=== PATIENT | female | born 1995 | race Two or more races ===

== ENCOUNTER 2017-11-08 18:46 | Emergency (ER) | payer MEDICAID ==
[~2017-11-08] VITALS: Ht 154.9 cm; Wt 57.6 kg
[2017-11-08 18:58] VITALS: BP 116/70
[2017-11-08] MEDS ORDERED: TYLENOL EXTRA500 MG ORAL (19:07)
--- NOTE | 2017-11-08 19:07 | Emergency Room Report ---
History of Present Illness General Chief Complaint: Upper Extremity Injury Source: Patient (Nicholas Franco) Present Illness HPI 22-year-old female patient presents ER complaining of right wrist pain since . Patient reports that she was moving boxes when her pinky finger got stuck between a box in the wall and got pulled back. Patient reports that she began to experience wrist pain at that time. Patient reports pain is increased during that time. Patient reports she is right-handed. Patient reports no loss of function. Patient reports pain with movement.. Patient denies open wound, bruising, swelling. denies fever, chest pain, shortness of breath. (Nicholas Franco) Allergies: Coded Allergies: No Known Allergies (Unverified , 11/08/17) Patient History Past Medical History: see triage record Last Menstrual Period: 11/02 Now: No Reviewed Nursing Documentation: PMH: Agreed; PSxH: Agreed (Nicholas Franco) Nursing Documentation-PMH Past Medical History: No Stated History (Nicholas Franco) Review of Systems All Other Systems: negative except mentioned in HPI (Nicholas Franco) Physical Exam Vital Signs Date Time Temp Pulse Resp B/P (MAP) Pulse Ox O2 Delivery O2 Flow Rate FiO2 11/08/17 18:48 98.6 85 18 120/71 100 Room Air 98.6 Sp02 EP Interpretation: reviewed, normal General Appearance: well appearing, no apparent distress, alert, GCS 15, non- toxic Head: normocephalic, atraumatic Eyes: bilateral eye normal inspection, bilateral eye PERRL Neck: full range of motion Respiratory: lungs clear, normal breath sounds, no rhonchi, no respiratory distress, no accessory muscle use, no wheezing, speaking full sentences Cardiovascular #1: regular rate, rhythm, no edema Cardiovascular #2: 2+ radial (R), 2+ radial (L) Musculoskeletal: back normal, digits/nails normal, gait/station normal, normal range of motion, non-tender, other - NVI, cap refill <2sec in all digits, no snuffbox tenderness, able to make fist Neurologic: alert, oriented x3, responsive, motor strength/tone normal, sensory intact Psychiatric: mood/affect normal Skin: no rash Lymphatic: no adenopathy (Nicholas Franco) Medical Decision Making PA Attestation Dr. Miller is my supervising Physician whom patient management has been discussed with. (Nicholas Franco) Diagnostic Impression: Primary Impression: Wrist pain ER Course Pt. presents to the ED c/o right wrist pain. Ddx considered but are not limited to fracture, sprain, strain, contusion, dislocation. Vital signs: are WNL, pt. is afebrile Ordered X-ray and pain medication. ER COURSE Provided with pain medication. PE benign, full ROM, no snuffbox tenderness, no deformity, NVI. Pain with reported with radial and ulnar deviation. An X-ray of the right wrist was ordered, results show no acute fracture, per the preliminary reading. Splint was applied to the right wrist was checked afterwards by me showing good alignment and support with distal neurovascular functioning intact. Patient instructed on RICE method: rest, ice, compression, elevation. Patient instructed to WBAT Followup with primary care provider for further treatment and referral. Discuss referral to ortho/pain management/PT as needed. Discuss further imaging with MRI/CT as needed. DISCHARGE: -Rx provided for Tylenol for pain symptoms. At this time pt. is stable for d/c to home. Patient is resting comfortably, in no acute distress, nontoxic appearing, talking without difficulty. Will provide printed patient care instructions, and any necessary prescriptions. Patient instructed to follow with primary care provider in 3 - 5 days and to request further orthopedic follow-up. Care plan and follow up instructions have been discussed with the patient prior to discharge. Take medications as directed. Patient questions asked and answered. Patient reports understanding and agreement to treatment plan. ER precautions given, patient instructed to return to ER immediately for any new or worsening of symptoms. - Please note that this Emergency Department Report was dictated using test companymathematics department chair technology software, occasionally this can lead to erroneous entry secondary to interpretation by the dictation equipment. (Nicholas Franco) Other X-Ray Diagnostic Results Other X-Ray Diagnostic Results : X-Ray ordered: right wrist # of Views/Limited Vs Complete: 3 View Indication: Pain EP Interpretation: Yes PA Xray: Interpretation reviewed, by supervising MD, and agrees with findings. Interpretation: no dislocation, no soft tissue swelling, no fractures Impression: No acute disease PA Scribe Text Tashi Franco PA-C (Nicholas Franco) Other X-Ray Diagnostic Results : Electronically Signed by: Stephani documentation reviewed by me and is accurate, Arsenio Millre MD. (Arsenio Miller M.D.) Last Vital Signs Date Time Temp Pulse Resp B/P (MAP) Pulse Ox O2 Delivery O2 Flow Rate FiO2 11/08/17 18:58 98.4 66 18 116/70 100 Room Air 98.4 (Nicholas Franco) Disposition: HOME, SELF-CARE Condition: Stable Scripts Acetaminophen* (TYLENOL EXTRA STRENGTH*) 500 Mg Tablet 500 MG ORAL Q8H PRN for Prn Headache/Temp > 101, #30 TAB 0 Refills Prov: Nicholas Franco 11/08/17 Patient Instructions: Wrist Pain, [id number] Additional Instructions: Patient instructed to follow up with primary care provider and discuss further referral to orthopedics. Patient instructed on RICE method: rest, ice, compression, elevation. Patient instructed to NWB/WBAT. Take medications as directed. Patient questions asked and answered. ER precautions given, patient instructed to return to ER immediately for any new or worsening of symptoms. Nicholas Franco November 08, 2017 19:07 Arsenio Miller M.D. November 09, 2017 04:57
[2017-11-08 20:18] VITALS: BP 106/53
[2017-11-08 20:20] VITALS: BP 106/53
--- NOTE | 2017-11-09 09:35 | Diagnostic Imaging Report ---
Indication: Pain Findings: 3 views of the right wrist were obtained. No acute fractures, malalignment, erosions or periostitis are identified. Soft tissues are unremarkable. Impression: No acute findings.
== END 2017-11-08 20:20 | disposition home or self-care (01) ==
LOC: EMR 20:11
DX: M25.531 Pain in right wrist (principal)
CPT/HCPCS: 99283

== ENCOUNTER → 2019-01-04 | Emergency (ER) | payer MEDICAID ==
[~2019-01-04] VITALS: Ht 154.9 cm; Wt 59.0 kg
[~2019-01-04] MED LIST: TYLENOL EXTRA500 MG ORAL
[2019-01-04 21:30] VITALS: BP 127/69
--- NOTE | 2019-01-04 21:33 | Emergency Room Report ---
History of Present Illness General Chief Complaint: Chest Pain Source: Patient Present Illness HPI This is a 24-year-old female with no past medical history. She presents with chief complaint of chest pain. This been on and off for the last few weeks. Pain is the left chest area. Sharp in nature. Radiating down epigastric area into her back. No nausea no vomiting. No fever chills but lasting only minutes. She is also complaining of feeling a lot of stress. No suicidal thoughts homicidal thought. Pain is 7 out of 10 when of scarring. No pain now. Allergies: Coded Allergies: No Known Allergies (Unverified , 11/08/17) Patient History Past Medical History: none, see triage record, old chart reviewed Past Surgical History: none Pertinent Family History: none Social History: Denies: smoking Last Menstrual Period: 12/2018 Now: No Immunizations: other Reviewed Nursing Documentation: PMH: Agreed; PSxH: Agreed Nursing Documentation-PMH Past Medical History: No Stated History Review of Systems Eye: Denies: eye pain, blurred vision ENT: Denies: ear pain, nose congestion, throat swelling Respiratory: Denies: cough, shortness of breath Cardiovascular: Reports: chest pain; Denies: palpitations Gastrointestinal: Denies: abdominal pain, diarrhea, nausea, vomiting Musculoskeletal: Denies: back pain, joint pain Skin: Denies: rash Neurological: Denies: headache, numbness Endocrine: Denies: increased thirst, increased urine Hematologic/Lymphatic: Denies: easy bruising All Other Systems: negative except mentioned in HPI Physical Exam Vital Signs Date Time Temp Pulse Resp B/P (MAP) Pulse Ox O2 Delivery O2 Flow Rate FiO2 01/04/19 21:23 98.2 87 29 127/69 (88) 100 Room Air Vitals normal Sp02 EP Interpretation: reviewed, normal General Appearance: well appearing, no apparent distress, alert Head: normocephalic, atraumatic Eyes: bilateral eye PERRL, bilateral eye EOMI ENT: hearing grossly normal, normal pharynx Neck: full range of motion, supple, no meningismus Respiratory: chest non-tender, lungs clear, normal breath sounds Cardiovascular #1: regular rate, rhythm, no murmur Gastrointestinal: normal bowel sounds, non tender, no mass, no organomegaly, no bruit, non-distended Musculoskeletal: back normal, gait/station normal, normal range of motion Psychiatric: mood/affect normal Medical Decision Making Diagnostic Impression: Primary Impression: Chest pain Qualified Codes: R07.9 - Chest pain, unspecified ER Course Patient presents with atypical chest pain. May be stress related. No evidence of ACS, PE, dissection to name a few. Will discharge home. EKG Diagnostic Results Rate: normal Rhythm: NSR ST Segments: no acute changes Rhythm Strip Diag. Results EP Interpretation: yes Rate: 80 Rhythm: NSR, no PVC's, no ectopy Chest X-Ray Diagnostic Results Chest X-Ray Diagnostic Results : Chest X-Ray Ordered: Yes # of Views/Limited/Complete: 1 View Indication: Chest Pain EP Interpretation: Yes Interpretation: no consolidation, no effusion, no pneumothorax, no acute cardiopulmonary disease Impression: No acute disease Electronically Signed by: Eliezer Lema MD Last Vital Signs Date Time Temp Pulse Resp B/P (MAP) Pulse Ox O2 Delivery O2 Flow Rate FiO2 01/04/19 21:23 98.2 87 29 127/69 (88) 100 Room Air Status: improved Disposition: HOME, SELF-CARE Condition: Stable Patient Instructions: Nonspecific Chest Pain Additional Instructions: Follow-up with your doctor in 7 days. Return if symptoms worsen. Eliezer Lema MD Jan 04, 2019 21:33
[2019-01-04 21:55] VITALS: BP 132/71
--- NOTE | 2019-01-05 12:40 | Diagnostic Imaging Report ---
Indication: Chest pain Comparison: None A single view chest radiograph was obtained. Findings: Cardiomediastinal appearance is within normal limits for age. The lungs are clear. Pulmonary vascularity is appropriate. The diaphragmatic contour is smooth and costophrenic angles are sharp. No pleural effusions are identified. The bones are unremarkable. Impression: No acute findings
--- NOTE | 2019-01-05 15:31 | Cardiology Report ---
APPROVED REPORT EKG Measurement Heart [id number] Normal sinus rhythm Normal ECG
== END | disposition home or self-care (01) ==
LOC: EMR 21:35
DX: R07.9 Chest pain, unspecified (principal)
CPT/HCPCS: 71045; 93005; 99283

== ENCOUNTER 2020-03-31 17:57 | Emergency (ER) | payer SELFPAY ==
[~2020-03-31] VITALS: Ht 154.9 cm; Wt 70.3 kg
[~2020-03-31 17:57] MED LIST changes: +FAMOTIDINE20 MG ORAL; +IBUPROFEN600 MG ORAL; +ONDANSETRON ODT4 MG BC
[2020-03-31 18:15] VITALS: BP 122/68
[2020-03-31] MEDS ORDERED: Lidocaine 1% MPF 10mg/ml 5ml INJ ONE (18:30)
[2020-03-31] MEDS ORDERED: Bicillin LA 2.4MMU/4ML SYR IM ONE (18:30)
[2020-03-31] MEDS ORDERED: Azithromycin 250mg tab ORAL ONE (18:30)
[2020-03-31 19:08] LABS: BASOPHILS % (AUTO) 0.8 % (0.0-2.0); EOSINOPHILS % (AUTO) 0.5 % (0.0-3.0); HEMATOCRIT 34.1 % (37.0-47.0); HEMOGLOBIN 10.8 G/DL (12.0-16.0); LYMPHOCYTES % (AUTO) 15.9 % (20.0-45.0); MEAN CORPUSCULAR VOLUME 76 FL (80-99); MONOCYTES % (AUTO) 9.4 % (1.0-10.0); NEUTROPHILS % (AUTO) 73.4 % (45.0-75.0); PLATELET COUNT 331 K/UL (150-450); RED CELL DISTRIBUTION WIDTH 15.4 % (11.6-14.8); WHITE BLOOD COUNT 13.1 K/UL (4.8-10.8)
[2020-03-31 19:11] LABS: APPEARANCE,URINE CLOUDY; BILIRUBIN, URINE NEGATIVE (NEGATIVE); COLOR,URINE PALE YELLOW; GLUCOSE, URINE (UA) NEGATIVE (NEGATIVE); KETONES,URINE NEGATIVE (NEGATIVE); LEUKOCYTE ESTERASE ,URINE 1+ (NEGATIVE); NITRITE,URINE POSITIVE (NEGATIVE); PH,URINE 7 (4.5-8.0); PROTEIN,URINE NEGATIVE (NEGATIVE); UROBILINOGEN,URINE NORMAL MG/DL (0.0-1.0)
[2020-03-31 19:27] LABS: ANION GAP 9 mmol/L (5-15); BLOOD UREA NITROGEN 11 mg/dL (7-18); CALCIUM 9.1 MG/DL (8.5-10.1); CARBON DIOXIDE 26 MMOL/L (21-32); CHLORIDE 105 MMOL/L (98-107); POTASSIUM 3.7 MMOL/L (3.5-5.1); SODIUM 140 MMOL/L (136-145)
[2020-03-31 19:29] LABS: ALANINE AMINOTRANSFERASE 22 U/L (12-78); ALBUMIN 4.1 G/DL (3.4-5.0); ALBUMIN/GLOBULIN RATIO 1.1 (1.0-2.7); ALKALINE PHOSPHATASE 86 U/L (46-116); ASPARTATE AMINO TRANSFERASE 22 U/L (15-37); BILIRUBIN,TOTAL 0.2 MG/DL (0.2-1.0)
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
[2020-03-31] MEDS ORDERED: CEPHALEXIN500 MG ORAL (19:43)
[2020-03-31 20:05] VITALS: BP 132/70
== END 2020-03-31 20:05 | disposition home or self-care (01) ==
LOC: EMR 19:09
DX: T74.21XA Adult sexual abuse, confirmed, initial encounter (principal); X58.XXXA Exposure to other specified factors, initial encounter; Y92.9 Unspecified place or not applicable; N39.0 Urinary tract infection, site not specified
CPT/HCPCS: 36415; 80053; 80307; 81003; 81025; 85025; 86703; 87086; 87181; 96372; 99284; G0480; J0696